=== PATIENT | male | born 1995 | race African-American/Black ===

== ENCOUNTER 2024-05-17 21:57 | Emergency (ER) | payer OTHER ==
[~2024-05-17] VITALS: Ht 180.3 cm; Wt 81.7 kg
[2024-05-17 22:03] VITALS: BP 110/78; PULSE 70; RESP 20; TEMP 97.9
[2024-05-17] MEDS: KETOROLAC TROMETHAMINE 30 MG/ML VIAL IVP ONE (23:14)
[2024-05-17] MEDS: DiphenhydrAMINE HCL 50 MG/ML VIAL IVP ONE (23:15)
[2024-05-17] MEDS: METOCLOPRAMIDE HCL 5 MG/ML 2 ML VIAL IVP ONE (23:15)
[2024-05-17] MEDS: IBUPROFEN 600 MG TABLET PO ONE (23:26)
== END 2024-05-18 00:56 | disposition home or self-care (01) ==
LOC: EMS 21:57
DX: G43.909 Migraine, unspecified, not intractable, without status migrainosus (principal)
CPT/HCPCS: 99282; Z7502; Z7610

== ENCOUNTER 2024-06-01 19:57 | Emergency (ER) | payer OTHER ==
[~2024-06-01] VITALS: Ht 180.3 cm; Wt 77.3 kg
[2024-06-01 20:08] VITALS: TEMP 97.9
[2024-06-01] MEDS: SODIUM CHLORIDE 0.9% 1,000 ML IV ONE (22:33)
[2024-06-01] MEDS: ACETAMINOPHEN 500 MG TABLET PO ONE (22:33)
[2024-06-01 22:41] LABS: BASOPHILS % (AUTO) 0.2 % (0.0-2.0); EOSINOPHILS % (AUTO) 0.7 % (1.0-6.0); HEMATOCRIT 44.5 % (41-53); HEMOGLOBIN 14.6 g/dL (13.5-17.5); LYMPHOCYTES # (AUTO) 2.4 K/uL (1.0-4.8); LYMPHOCYTES % (AUTO) 32.9 % (22.0-44.0); MEAN CORPUSCULAR HEMOGLOBIN 26.4 pg (26.0-34.0); MEAN CORPUSCULAR HGB CONC 32.8 G/dL (31.0-37.0); MEAN CORPUSCULAR VOLUME 81 fL (80-100); MONOCYTES # (AUTO) 0.6 K/uL (0.1-1.0); MONOCYTES % (AUTO) 8.4 % (2.0-9.0); NEUTROPHILS # (AUTO) 4.3 K/uL (1.8-7.7); NEUTROPHILS % (AUTO) 57.8 % (40.0-70.0); PLATELET COUNT (AUTO) 237 K/uL (150-450); RED BLOOD CELL COUNT(AUTO) 5.53 MIL/uL (4.50-5.90); RED CELL DISTRIBUTION WIDTH 13.2 % (11.5-14.5); WHITE BLOOD COUNT (AUTO) 7.4 K/uL (4.5-11.0)
[2024-06-01 22:45] LABS: ANION GAP 2 mmol/L (8-16); CALCIUM, TOTAL 8.7 mg/dL (8.8-10.5); CARBON DIOXIDE 32 mmol/L (22-29); CHLORIDE 101 mmol/L (98-107); GLOMERULAR FILTR. RATE CALC > 60 mL/min (>60); GLUCOSE,RANDOM 77 mg/dL (70-110); POTASSIUM 3.9 mmol/L (3.5-5.1); SODIUM SERUM 135 mmol/L (136-145); UREA NITROGEN, BLOOD 12 mg/dL (7-18)
[2024-06-01] MEDS ORDERED: IBUP-1492 PO (23:09)
[2024-06-01] MEDS ORDERED: ACET-3385 PO (23:09)
[2024-06-01] MEDS: KETOROLAC TROMETHAMINE 30 MG/ML VIAL IVP ONE (23:25)
[2024-06-01 23:34] VITALS: BP 114/69; PULSE 59; RESP 20
== END 2024-06-01 23:37 | disposition home or self-care (01) ==
LOC: EMS 19:58
DX: G43.909 Migraine, unspecified, not intractable, without status migrainosus (principal)
CPT/HCPCS: 99285; 96374; 70450; 96361; 80048; 85025; 36415; J1885; J7030